=== PATIENT | female | born 1995 | race Caucasian/White ===

== ENCOUNTER 2019-12-30 11:47 | Inpatient (IN) | payer OTHER ==
[~2019-12-30] VITALS: Ht 170.2 cm; Wt 92.0 kg
--- NOTE | ~2019-12-30 | OR ---
[facility] [address], [place] [address] Draft DATE OF OPERATION: 12/31/2019 SURGEON: Juan Ruiz DO PREOPERATIVE DIAGNOSES: 1. Intrauterine at 37 and 0 weeks gestation. 2. Preeclampsia without severe features. 3. Type 1 diabetes with suboptimal control. 4. macrosomia. POSTOPERATIVE DIAGNOSES: 1. Intrauterine at 37 and 0 weeks gestation. 2. Preeclampsia without severe features. 3. Type 1 diabetes with suboptimal control. 4. macrosomia. PROCEDURE PERFORMED: Primary low transverse delivery. ANESTHESIA: Spinal. MARINE ELECTRONICS TECHNICIAN: Vilma Weston MD. ESTIMATED BLOOD LOSS: 1000 mL. COMPLICATIONS: None. FINDINGS: Delivery of viable male in the OA position, weighing 9 pounds 13 ounces with Apgars of 7 and 9 at 1 and 5 minutes respectively. Normal uterus, tubes, and ovaries. Extension of hysterotomy on the left side with extension into the left uterine artery. Initial uterine atony that resolved with fundal massage. INDICATIONS: Ms. Cagle is a pleasant 24-year-old G2, P1, with intrauterine at 37 and 0 weeks gestation, who presented for scheduled primary low transverse delivery. PATIENT NAME: GEMA CAGLE OPERATIVE REPORT DATE OF : [birth year] REPORT #: [id number] PHYSICIAN: JUAN RUIZ DO PCP: JUAN RUIZ DO REPORT IS CONFIDENTIAL AND NOT TO BE RELEASED WITHOUT AUTHORIZATION [facility] [address], [place] [address] Draft Surgery was complicated by history of type 1 diabetes with suboptimal control with resulting macrosomia. She was seen by Maternal- Medicine, who recommended primary low transverse delivery to avoid shoulder dystocia. Over the past 2 days, the patient has developed preeclampsia without severe features with new onset proteinuria and elevated blood pressures. No symptoms of severe preeclampsia. The patient was consented for procedure after detailing the risks, benefits, and alternatives. Consents were signed and all questions were answered, and the patient was ready to proceed with the procedure. TECHNIQUE: The patient was taken to the operating room, where a time-out was performed to confirm correct patient and correct procedure. Spinal anesthesia was adequately established. The patient was prepped and draped in the supine position with a bump under the right hip. A Huffman catheter was inserted and ICPs were on and running. Ancef 2 g were given preoperatively and no heparin was indicated. After confirming the spinal was adequate, a Pfannenstiel skin incision was made and carried down to the fascia. The fascia was nicked in the midline and fascial incision was extended bilaterally using curved Aguirre scissors. Fascia was grasped with Dayton's, elevated, and the underlying rectus muscle dissected bluntly and sharply. The rectus muscles were then divided in the midline. The peritoneum was entered bluntly. Peritoneal incision was extended cephalad and caudad using sharp and blunt dissection. Survey of the abdomen and pelvis demonstrates no intraabdominal or pelvic adhesions and an Shilo self retractor was placed without difficulty. Lower uterine segment was identified and hysterotomy was performed using surgical scalpel. Hysterotomy was extended bilaterally using blunt dissection and clear amniotic fluid was noted. The vertex was delivered with the assistance of fundal pressure. No nuchal cord was identified and the shoulders and body were delivered without difficulty. The was vigorous and cried at delivery and the cord was doubly clamped and cut and the handed to the waiting pediatric team for further care. Cord blood and gases were obtained and the placenta delivered was manually expressed intact with a centrally inserted 3-vessel cord. The uterus was cleared of any remaining products of conception and clot. Extension of the hysterotomy was noted on the left side running down. It was noted the hysterotomy extended in the left uterine artery. This was made hemostatic with 0 Vicryl in an [place] stitch and with a running 0 Vicryl locked suture. Hysterotomy was then repaired using 0 Vicryl in a running locked manner with good hemostasis. A second imbricating stitch of 0 Vicryl was applied. Small amount of oozing was noted in the midline. This was made hemostatic with [id number] of 0 Vicryl. The pelvis was irrigated and found to be hemostatic at this point. ACell powder was applied to the lower uterine segment after the Shilo uterine retractor was removed. Peritoneum was then reapproximated with 2-0 Vicryl in a running nonlocked manner. The rectus was examined, made hemostatic with Bovie electrocautery and interrupted sutures of 0 Vicryl. ACell powder was applied to the rectus sheath. Fascia was reapproximated using 2-0 Vicryl in a running nonlocked PATIENT NAME: GEMA CAGLE OPERATIVE REPORT DATE OF : [birth year] REPORT #: [id number] PHYSICIAN: JUAN RUIZ DO PCP: JUAN RUIZ DO REPORT IS CONFIDENTIAL AND NOT TO BE RELEASED WITHOUT AUTHORIZATION [address] [address] Draft manner. Subcu was reapproximated using 2-0 Vicryl in a running nonlocked manner and skin was reapproximated using surgical michelle. The uterus was Crede'd for small amount of blood and the patient was taken to the PACU in good and stable condition with her . Sponge, needle, and instrument counts were correct x2 at the end of procedure. Dr. Weston was present, participated in all portions of procedure. Juan Ruiz DO JCkW/MODL /[id number] Copies: ~ PATIENT NAME: GEMA CAGLE SRIRAM OPERATIVE REPORT DATE OF : [birth year] REPORT #: [id number] PHYSICIAN: JUAN RUIZ DO PCP: JUAN RUIZ DO REPORT IS CONFIDENTIAL AND NOT TO BE RELEASED WITHOUT AUTHORIZATION
[~2019-12-30 11:47] MED LIST: ACTEMRA400 MG/20 IV; AMOXICILLIN500 MG PO; AUGMENTIN 875-1 EACH PO; HUMALOG100 UNIT/2 SUB-Q; IMITREX4 MG/0.51; IRON18 MG PO; MEDROXYPRO150 MG/11 IM; NORCO 5-325 TA1 EACH PO; OMEPRAZOLE20 MG PO; PRENATAL-FOLIC1 EACH PO; TRESIBA FL100 UNIT/1 SUB-Q
--- NOTE | 2019-12-31 09:58 | NUR ---
12/31/19 0958 Madelin Farfan 09-PT ARRIVES BACK TO [facility] ROOM 4. VSS. PT AWAKE AND ORIENTED X3. SPINAL T6. PT DENIES PAIN/NAUSEA. PT HAS INSULIN PUMP AND PRE-OP BLOOD SUGAR 94. current blood sugar 97 reading from insulin pump 1000-baby taken to nursery by c rn. pt denies pain/nausea. spinal remains at t6. ff @ u-2 and no bleeding noted on joel pad
--- NOTE | 2020-01-01 08:07 | PR ---
[facility] [address], [place] [address] Signed PP Progress Notes Datetime Report Generated by CPN: 01/01/2020 08:07 SUBJECTIVE: [id number] Pain: Within normal limits Nausea/Vomiting: Denies Flatus: Yes Bowel Movement: No Vital Signs: [id number] Vital Signs: Reviewed Notable Details: No severe range BPS EXAM: [id number] Cardiovascular: Normal Respiratory: Normal Abdomen/Uterus: Normal Lochia: Normal Vulva/Perineum: Not Done Breasts: Not Done CVA Tenderness: Normal Extremities: Normal Incision: Normal Progress: Normal Exam Comments: Fundus firm U-2 nontender. Incision well healing IMPRESSION/PLAN/PROCEDURES: [id number] Impression: Normal progression Plan: Discharge Progress Notes: Pt seen and examined. Doing well. Ambulating and tolerating full diet. Huffman out but has not voided. Pain and lochia minimal. No severe BPs. No DURAN, RUQ pain, or visual changes. Baby developed pneumothorax this morning after normal chest XR yesterday. Pt desires d/c to be with . Mom appears stable for discharge. Glucose levels normal 60's-90's . Reviewed d/c education in detail. Signing Physician: Juan Ruiz DO Copies: ~ *Electronically Signed* 01/01/20 0807 JUAN RUIZ DO PATIENT NAME: GEMA PARK SRIRAM PROGRESS NOTE DATE OF : [birth year] PHYSICIAN: JUAN RUIZ DO RPT #: [id number] REPORT IS CONFIDENTIAL AND NOT TO BE RELEASED WITHOUT AUTHORIZATION
== END 2020-01-01 11:35 | disposition home or self-care (01) | DRG 787 ==
LOC: FBC 12-31 05:35
PROVIDERS: ADMIT Obstetrics & Gynecology
PROC: 10D00Z1 Extraction of Products of Conception, Low, Open Approach (ICD-10-PCS; principal; 2019-12-31 08:30)
DX: O14.04 Mild to moderate pre-eclampsia, complicating childbirth (principal); D62 Acute posthemorrhagic anemia; Z3A.37 37 weeks gestation of pregnancy; Z37.0 Single live birth; O75.89 Other specified complications of labor and delivery; O36.63X0 Maternal care for excessive fetal growth, third trimester, not applicable or unspecified; O24.02 Pre-existing type 1 diabetes mellitus, in childbirth; E10.9 Type 1 diabetes mellitus without complications; Z96.41 Presence of insulin pump (external) (internal); O90.81 Anemia of the puerperium
CPT/HCPCS: 01961; 36415; 82565; 84450; 84520; 84550; 85027; A9270; J0690; J1885; J2001; J2175; J2274; J2300; J2405; J2550; J2590; J7121

== ENCOUNTER 2021-03-23 05:45 | Day surgery (SDC) | payer OTHER ==
[~2021-03-23] VITALS: Ht 170.2 cm; Wt 74.0 kg
[~2021-03-23 05:45] MED LIST changes: +HUMALOG100 UNIT/1 SUB-Q; +LEVOTHYROXINE75 MC1
--- NOTE | 2021-03-23 09:28 | NUR ---
03/23/21 0928 Jazzmine Benton 0914- PT ARRIVES TO PACU NONAROUSABLE TO NOXIOUS STIMULI WITH AN OPA IN PLACE. RESP EVEN AND UNLABORED. OXYGEN SAT HIGH 90'S TO 100% ON 6L VIA MASK. 0915- PT IS MOVING HER ARMS AND IS BITING DOWN ON HER OPA. JUNI DALE CRNA AT THE BEDSIDE TRYING TO HAVE THE PT OPEN HER MOUTH TO REMOVE THE OPA. PT IS UNABLE TO FOLLOW THIS INSTRUCTION. OPA LEFT IN PLACE. 0919- PT IS MORE AROUSABLE AND ABLE TO FOLLOW INSTRUCTIONS NOW. PT OPENS HER MOUTH AND OPA REMOVED. OXYGEN MASK REPLACED AT 6L O2.
--- NOTE | 2021-03-23 11:03 | NUR ---
1100 PT RESTING COMFORTABLY DENIES PAIN OR NAUSE AT BEDSIDE, BLOOD GLUCOSE ON HER MONITOR IS 123, HERRMANN CATH HAS 250ML OF CLEAR YELLOW FLUID.
--- NOTE | 2021-03-23 12:27 | NUR ---
[id number] PT REPORTS SHE FEELS LIKE SHE HAS TO VOID I ADVISED HER THAT SHE HAS A HERRMANN CATH IN AND IT MAY BE THE PRESSURE SHE FEELS FROM THAT. ALIZE WAS DC'D SHE FEELED LIKE SHE STILL HAD TO VOID. SHE WALKED TO THE BATHROOM WITH MINIMAL ASSIST. SHE WAS ABLE TO VOID ONLY 20ML OF CLEAR YELLOW URINE. THERE WAS A TOTAL OF 600ML OF BRIGHT YELLOW URINE IN ALIZE SINCE SHE CAME TO DAYSURGERY. HER BLOOD SUGAR IS 143 ON HER MONITOR. SHE IS VERY AWAKE AND ALERT DENIES NAUSEA AND PAIN. SHE ATE A CRACKER AND SOME ICE CHIPS AFTER GETTING BACK INTO BED.
--- NOTE | 2021-03-23 13:44 | NUR ---
PT TAKEN TO OR, TEVIN REMAIN IN RM. HE FEEL FAIRLY RELAXED, FEELS CONFIDENT IN CARE PT IS RECEIVING. GAVE ENCOURAGEMENT, HE IS CONCERNED THAT PT WILL TRY AND DO TOO MUCH TOO SOON WITH 3 SMALL CHILDREN. WILL FOLLOW
--- NOTE | 2021-03-23 14:20 | NUR ---
1400 PT COMPLAINING OF PAIN 6/10 PAIN PERCOCET GIVEN. PT EATING CRACKERS AND DRINKING WATER
--- NOTE | 2021-03-23 14:21 | NUR ---
1415 DRESSING AROUND RT ARM CLEAN AND INTACT, BANDAID ON RT SIDE OF ABD HAS A SMALL AMOUNT OF SHADOWING, OTHERS ARE CLEAN AND INTACT TYLER PAD HAS A DIME SIZE SPOT OF LIGHT RED BLOOD ON IT.
--- NOTE | 2021-03-23 14:34 | NUR ---
1435 PT WAS UP TO BATHROOM WITHOUT ASSIT. SHE WAS ABLE TO VOID 200ML OF BRIGHT YELLOW URINE.
--- NOTE | 2021-03-23 14:45 | NUR ---
HERRMANN REMOVED AT 1145
--- NOTE | 2021-03-24 17:00 | PATH ---
[facility] [address] [place], [place] [address] Signed SPECIMEN(S): A UTERUS AND CERVIX SPECIMEN SOURCE: A. UTERUS AND CERVIX CLINICAL HISTORY: Abnormal uterine bleeding. TLH, cysto., Nexplanon removal. FINAL PATHOLOGIC DIAGNOSIS: Uterus and cervix, hysterectomy: - Cervix: No histopathologic abnormality. - Endometrium: Weakly proliferative endometrium. - Myometrium: No histopathologic abnormality. - Serosa: No histopathologic abnormality. - No evidence of malignancy. NAL:cml:C2NR MICROSCOPIC EXAMINATION: Histologic sections of all submitted blocks are examined by light microscopy. These findings, together with the gross examination, support the pathologic diagnosis. GROSS DESCRIPTION: The specimen, labeled "MM, uterus and cervix," is received in formalin and consists of a uterus that measures 4.0 x 2.7 x 6.7 cm. Serosal surface is pink-menjivar, smooth. The uterus weighs 68 grams. The ectocervix is pink-menjivar, smooth and measures 3.5 x 3.5 cm. Sectioning through the cervix reveals pink-menjivar, homogenous tissue. Entire cervix as a small cone biopsy is submitted due to patient history. The endometrial cavity measures 3.7 x 1.8 cm. It is lined with pink-menjivar, smooth endometrium. Sectioning through the myometrium reveals pink-menjivar, homogenous tissue. No masses or abnormalities are grossly identified. The myometrium measures 1.3 cm in thickness. The endometrium measures up to 0.1 cm in thickness. Cassette Summary: (A1-A2) Cervix, 12 to 3 o'clock (A3-A4) Cervix, 3 to 6 o'clock (A5-A6) Cervix, 6 to 9 o'clock (A7-A8) Cervix, 9 to 12 o'clock (A9) Endomyometrium, apparel trimmings sales representative sections JS (under the direct supervision of a pathologist) PATIENT NAME: GEMA PARK PATHOLOGY DATE OF : [birth year] REPORT #: [id number] PHYSICIAN: ANGIE PATHOLOGY PCP: SALO GOMEZ MD REPORT IS CONFIDENTIAL AND NOT TO BE RELEASED WITHOUT AUTHORIZATION [facility] [address] [place], [place] [address] Signed The Gross Description was prepared using a voice recognition system. The report was reviewed for accuracy; however, sound-alike word errors, addition and/or deletions may occur. If there is any question about this report, please contact Client Services. PERFORMING LABORATORY: The technical component was performed by [facility] [address] (Security System Technician: Emilia Blandon MD; CLIA# [id number]). [facility], [address] [address] (CLIA# [id number]). Diagnostician: Teresa Vazquez MD Pathologist Electronically Signed 03/24/2021 Copies: ~ PATIENT NAME: GEMA PARK PATHOLOGY DATE OF : [birth year] REPORT #: [id number] PHYSICIAN: ANGIE CHILDERS PCP: SALO GOMEZ MD REPORT IS CONFIDENTIAL AND NOT TO BE RELEASED WITHOUT AUTHORIZATION
--- NOTE | 2021-04-14 22:59 | OR ---
[facility] [address] [place], [place] [address] Signed DATE OF OPERATION: 03/23/2021 SURGEON: Juan Ruiz DO PREOPERATIVE DIAGNOSES: 1. Abnormal uterine bleeding. 2. Type 1 diabetes, well controlled. 3. Supervision subdermal contraception. 4. Status post bilateral salpingectomy. POSTOPERATIVE DIAGNOSES: 1. Abnormal uterine bleeding. 2. Diabetes type 1, well controlled. 3. Removal of subdermal contraception. 4. Status post bilateral salpingectomy. PROCEDURES PERFORMED: 1. Total laparoscopic hysterectomy. 2. Nexplanon removal. 3. Cystoscopy. SHAKE BACKBOARD NOTCHER: Olivia Du DO ANESTHESIA: General. ESTIMATED BLOOD LOSS: 20 mL. SPECIMEN: Uterus and cervix. FINDINGS: Normal external genitalia with normal clitoris, urethral meatus, bilateral Drew's, and Bartholin's. Normal-appearing vagina and cervix. On laparoscopy, normal right upper quadrant. In the pelvis, normal-appearing uterus and bilateral ovaries. The fallopian tubes are surgically absent, consistent with history of bilateral salpingectomy. On cystoscopy, normal bladder with bilateral ureteral jets. Electronically Signed By: JUAN RUIZ DO 04/14/21 2259 PATIENT NAME: GEMA CAGLE OPERATIVE REPORT DATE OF : [birth year] REPORT #: [id number] PHYSICIAN: JUAN RUIZ DO PCP: SALO GOMEZ MD REPORT IS CONFIDENTIAL AND NOT TO BE RELEASED WITHOUT AUTHORIZATION [facility] [address] [place], [place] [address] Signed INDICATIONS: Ms. Cagle is a very pleasant 25-year-old white female, who presents with continued abnormal bleeding, status post bilateral salpingectomy and insertion of Nexplanon for cycle control. Evaluation of the uterus demonstrated no obvious cause for her continued abnormal bleeding and decision was made to proceed with definitive treatment with total laparoscopic hysterectomy. The patient also desires Nexplanon removed. Risks, benefits, and alternatives were discussed in detail with the patient. She is type 1 diabetic and she was seen by her Endocrinology provider, who gave perioperative recommendations to the patient and recommended we proceed with surgery as scheduled. TECHNIQUE: The patient was taken to the operating room. A time-out was performed to confirm correct patient, correct procedure. General anesthesia was adequately established. The patient was prepped and draped in dorsal lithotomy position with feet in Yellofin stirrups. ICPs were on and running. The patient received Ancef 2 g preoperatively and no heparin was indicated. Preoperative glucose was 177. A Huffman catheter was inserted. A weighted speculum was inserted to the vagina. The anterior lip of the cervix was grasped with an Allis clamp and the cervix gently dilated using Hegar dilators. A VCare uterine manipulator was placed without difficulty. The surgeon's gloves were changed and attention was turned to the abdomen. The base of the umbilicus was infiltrated with 0.25% Marcaine with epinephrine and a 5 mm stab incision was made with an #11 blade scalpel. A 5 mm trocar was then placed under direct visualization without complication. Pneumoperitoneum was easily established with low opening pressures. Survey of the abdomen and pelvis was performed showing normal right upper quadrant, normal omentum, and normal uterus and bilateral ovaries. The fallopian tubes were surgically absent bilaterally consistent with her history. Attention was turned to placing assist ports. A 5 mm assist port was placed in left lower quadrant under direct visualization without complication. An 8 mm expanding port was placed in the right lower quadrant under direct visualization without complication. A LigaSure device was then to fulgurate the utero-ovarian ligament on the right with excellent hemostasis. The utero-ovarian ligament on the left was then fulgurated and divided. The round ligament on the left was fulgurated, divided, and the leaves of the broad ligament were . The anterior leaf was divided down to the vaginal cuff and the bladder was pushed well below the vaginal cuff. The posterior leaf of the broad ligament was then divided to the insertion of the uterosacral ligament to the cervix and the peritoneum was dissected off posteriorly along the edge of the vaginal cup. The uterine vessels were identified, fulgurated, and divided with excellent hemostasis. The process was repeated on the right with division of the round ligament, division of the leaves of the broad ligament, and fulguration division of the uterine vessels. Sonicision device was then used to perform colpotomy following the edge of the green cup around the cervix. The uterus and cervix were then delivered through the vagina and sent to pathology for further evaluation. The vagina was packed with a wet lap in a glove to maintain Electronically Signed By: JUAN RUIZ DO 04/14/21 3083 PATIENT NAME: GEMA CAGLE OPERATIVE REPORT DATE OF : [birth year] REPORT #: [id number] PHYSICIAN: JUAN RUIZ DO PCP: SALO GOMEZ MD REPORT IS CONFIDENTIAL AND NOT TO BE RELEASED WITHOUT AUTHORIZATION [address] [address] Signed pneumoperitoneum and attention was turned to colpotomy repair. A small oozing vessel was noted at the edge of the colpotomy on the left and this was made hemostatic with careful use of the LigaSure device. Colpotomy was then repaired using V-Loc suture with an Endostitch device carefully incorporating the uterosacral ligaments and the vaginal epithelium with each bite. Excellent apical support and hemostasis were appreciated. The pelvis was irrigated and good hemostasis was appreciated. Pneumoperitoneum was reduced. Trocars were removed and trocar sites were repaired with 4-0 Monocryl in subcuticular manner with excellent hemostasis cosmesis. Huffman catheter was removed. A 70-degree cystoscope was placed in the urethral meatus and advanced under direct visualization to the bladder. Normal bladder dome and bladder. Bilateral ureteral jets were appreciated. The bladder was drained. Huffman catheter was reinserted and attention was turned to removal of the Nexplanon. The Nexplanon was palpated in the upper right arm with excellent placement. The area was prepped and a 3 mm stab incision was made with an #11 blade. The Nexplanon was grasped with hemostats and fibrous capsule was dissected with # 11 blade. The Nexplanon was removed without difficulty and incision site was bandaged with Steri-Strips. The arm was then wrapped in Coban. Postoperative glucose was 114 and the patient was taken to PACU in good and stable condition. Sponge, needle, and instrument count were correct x2 at the end the procedure. Dr. Du was present and participated in all portions of the procedure. Juan Ruiz DO JDW/ASHL /[id number] Copies: ~ Electronically Signed By: JUAN RUIZ DO 04/14/21 2259 PATIENT NAME: RIK CAGLESanjuana BHATIA OPERATIVE REPORT DATE OF : [birth year] REPORT #: [id number] PHYSICIAN: JUAN RUIZ DO PCP: SALO GOMEZ MD REPORT IS CONFIDENTIAL AND NOT TO BE RELEASED WITHOUT AUTHORIZATION
== END 2021-03-23 14:35 | disposition home or self-care (01) ==
LOC: OPS 05:45 → DS 05:45 → OPS 06:45 → DS 08:30 → OPS 08:30
PROVIDERS: ATTEND Obstetrics & Gynecology
PROC: 0UT94ZZ Resection of Uterus, Percutaneous Endoscopic Approach (ICD-10-PCS; principal; 2021-03-23 06:45)
PROC: 0JPV0HZ Removal of Contraceptive Device from Upper Extremity Subcutaneous Tissue and Fascia, Open Approach (ICD-10-PCS; 2021-03-23 06:45)
DX: N93.9 Abnormal uterine and vaginal bleeding, unspecified (principal); Z30.432 Encounter for removal of intrauterine contraceptive device; E10.9 Type 1 diabetes mellitus without complications; E07.9 Disorder of thyroid, unspecified; M06.9 Rheumatoid arthritis, unspecified; G40.409 Other generalized epilepsy and epileptic syndromes, not intractable, without status epilepticus; Z96.41 Presence of insulin pump (external) (internal); Z20.822 Contact with and (suspected) exposure to COVID-19; Z90.79 Acquired absence of other genital organ(s); Z90.722 Acquired absence of ovaries, bilateral
CPT/HCPCS: 00840; J0330; J0690; J1100; J1885; J2001; J2250; J2300; J2405; J2550; J2704; J3475; J7121

== ENCOUNTER 2021-08-31 08:30 | Emergency (ER) | payer OTHER ==
[~2021-08-31] VITALS: Ht 170.2 cm; Wt 68.5 kg
[2021-08-31] MEDS ORDERED: ONDANSETRON ODT4 MG PO (12:52)
[2021-08-31] MEDS ORDERED: DICYCLOMINE HCL10 MG PO (12:52)
[2021-08-31] MEDS ORDERED: HYDROCODON-ACE1 EA10 PO (12:52)
== END 2021-08-31 13:05 | disposition home or self-care (01) ==
LOC: ED 08:30
DX: K52.9 Noninfective gastroenteritis and colitis, unspecified (principal); E10.9 Type 1 diabetes mellitus without complications; Z79.899 Other long term (current) drug therapy; Z79.4 Long term (current) use of insulin; M06.9 Rheumatoid arthritis, unspecified
CPT/HCPCS: 74177; 80053; 81001; 83605; 83690; 83735; 85025; 96375; 99284-25; J1885; J2270; J2405; J7030; Q9967